=== PATIENT | female | born 1970 | race Caucasian/White ===

== ENCOUNTER → 2024-11-19 07:56 | Outpatient (BNVA) | payer MEDICARE, MEDICAID, SELFPAY | PROVIDERS: PCP Nurse Practitioner Family; Referring Provider Nurse Practitioner Family; Visit Provider Psychiatry & Neurology Neurology | DX: G43.111 Migraine with aura, intractable, with status migrainosus (principal); G43.909 Migraine, unspecified, not intractable, without status migrainosus; E55.9 Vitamin D deficiency, unspecified; E53.8 Deficiency of other specified B group vitamins | CPT/HCPCS: 36415; 82306; 82607; 82746; 83735; 99203 ==

== ENCOUNTER 2024-11-28 07:43 | Outpatient (CLI) | payer OTHER, MEDICAID, SELFPAY ==
--- NOTE | 2024-11-28 08:00 | MR_ITS ---
WS: [id number] MRI HEAD WITH CONTRAST TECHNIQUE: Sagittal T1, T2 axial, T2 axial FLAIR, axial susceptibility weighted imaging, axial diffusion weighted images, and coronal T2 images were obtained. Pre and post-T1 axial and post T1 coronal images. ADC and FSPGR images. CLINICAL INFORMATION: G43.909 - Migraine, unspecified, not intractable, without... COMPARISON: None. FINDINGS: No evidence of restricted diffusion to suggest acute ischemia. Ventricular system and basilar cisterns are patent. No suspicious intracranial signal abnormalities. Normal street-white differentiation. No significant parenchymal volume loss. Normal posterior fossa. Normal vascular flow voids at the skull base. Paranasal sinuses and mastoid air cells are well aerated. No hemosiderin on the susceptibility weighted images. Normal optic chiasm and pituitary infundibulum. No abnormal gadolinium enhancement. Normal dural venous sinuses. MR/MR head wo/w con [id number] IMPRESSION: 1. No evidence of restricted diffusion to suggest acute ischemia. 2. No suspicious intracranial signal abnormalities. 3. No hemosiderin on susceptibility weighted images. 4. No abnormal gadolinium enhancement.
[2024-11-28] MEDS: gadobenate dimeglumine 20 mL vial IV (08:23)
== END 2024-11-28 07:44 | disposition home or self-care (01) ==
LOC: RAD 07:44
PROVIDERS: PCP Nurse Practitioner Family; Visit Provider Psychiatry & Neurology Neurology
DX: G43.909 Migraine, unspecified, not intractable, without status migrainosus (principal)
CPT/HCPCS: 70553

== ENCOUNTER 2024-12-18 15:13 | Oncology outpatient (recurring) (ONCR) | payer OTHER, MEDICAID, SELFPAY ==
[2024-12-18] MEDS: eptinezumab-jjmr 100 MG in sodium chloride 0.9% (100 ml) 100 ML 202 MG IV (16:04)
[2024-12-18 17:17] VITALS: BP 135/70; PULSE 77; RESP 16; TEMP 36; O2SAT 96
== END 2025-01-12 23:59 | disposition home or self-care (01) ==
PROVIDERS: PCP Nurse Practitioner Family; Visit Provider Psychiatry & Neurology Neurology
DX: G43.111 Migraine with aura, intractable, with status migrainosus (principal); Z79.899 Other long term (current) drug therapy
CPT/HCPCS: 96365; A4222; J3032